=== PATIENT | female | born 1970 | race Caucasian/White ===

== ENCOUNTER 2017-12-12 05:24 | Emergency (ER) | payer OTHER ==
[2017-12-12 05:54] VITALS: BP 150/64; PULSE 88; RESP 18; TEMP 98.7; O2SAT 97
== END 2017-12-12 06:05 | disposition left against medical advice (07) ==
LOC: C.ER 05:24
DX: Z02.89 Encounter for other administrative examinations (principal); R42 Dizziness and giddiness
CPT/HCPCS: 82948; LWBS0